=== PATIENT | male | born 1965 | race Caucasian/White ===

== ENCOUNTER 2021-06-08 08:24 | Emergency (ER) | payer OTHER ==
[~2021-06-08] VITALS: Ht 188 cm; Wt 150.0 kg
[~2021-06-08 08:24] MED LIST: NO HOME MEDS
[2021-06-08 08:27] VITALS: BP 159/102
[2021-06-08 09:27] LABS: BASOPHILS % (AUTO) 0.2 % (0-1); EOSINOPHILS # (AUTO) 0.2 X10'3 (0-0.9); EOSINOPHILS % (AUTO) 1.5 % (0-6); HEMATOCRIT 46.9 % (42.0-52.0); HEMOGLOBIN 15.7 g/dl (14.0-17.9); LYMPHOCYTES # (AUTO) 1.2 X10'3 (1.1-4.8); LYMPHOCYTES % (AUTO) 10.9 % (21-51); MEAN CORPUSCULAR HEMOGLOBIN 31.3 PG (27.0-31.0); MEAN CORPUSCULAR HGB CONC 33.5 g/dL (33.0-36.5); MEAN CORPUSCULAR VOLUME 93.3 FL (78-98); MEAN PLATELET VOLUME 7.8 FL (7.4-10.4); MONOCYTES % (AUTO) 8.8 % (2-12); NEUTROPHILS % (AUTO) 78.6 % (42-75); PLATELET COUNT 291 X10'3 (140-440); RED BLOOD COUNT 5.03 X10'6 (4.70-6.10); RED CELL DISTRIBUTION WIDTH 14.3 % (11.5-14.5); WHITE BLOOD COUNT 11.4 X10'3 (4.5-11.0)
[2021-06-08] MEDS ORDERED: iohexol 300mg/ml 100ml inj. ONE (09:38)
[2021-06-08] MEDS ORDERED: CLIN300C53 PO (10:50)
[2021-06-08] MEDS ORDERED: PRED20TA PO (10:50)
== END 2021-06-08 11:01 | disposition home or self-care (01) ==
LOC: ER 08:24
DX: J03.90 Acute tonsillitis, unspecified (principal); Z88.5 Allergy status to narcotic agent; Z79.899 Other long term (current) drug therapy
CPT/HCPCS: 36415; 70491; 85025; 99285; Q9967

== ENCOUNTER 2022-11-01 20:04 | Emergency (ER) | payer OTHER ==
[~2022-11-01] VITALS: Ht 188 cm; Wt 161.4 kg
--- NOTE | 2022-11-01 22:34 | NUR ---
2199 Dr Child notified that pt's bp is 201/103, c/o left arm numbness, tingling and swelling, advised that he see pt as soon as he can, no orders
--- NOTE | 2022-11-02 00:56 | NUR ---
DR PALM NOTIFIED THAT PT'S BP 190/114, ADVISED OK TO DISCHARGE HOME AND HAVE PT [employer] PRESCRIBED BP MEDICATION THAT HAS ALREADY BEEN PRESCRIBED FOR HIM TODAY
[2022-11-02 00:58] VITALS: BP 190/114
== END 2022-11-02 01:01 | disposition home or self-care (01) ==
LOC: ER 20:06
DX: I10 Essential (primary) hypertension (principal); R20.0 Anesthesia of skin; R22.32 Localized swelling, mass and lump, left upper limb; Z88.5 Allergy status to narcotic agent; Z79.899 Other long term (current) drug therapy
CPT/HCPCS: 93005; 93971; 99285